=== PATIENT | female | born 1985 | race Caucasian/White ===

== ENCOUNTER → 2022-09-25 09:46 | Outpatient (CLI) | payer BC, SELFPAY ==
[2022-09-25 11:38] LABS: HCG,Quantitative < 2 mIU/ml (0-5.42)
== END ==
PROVIDERS: PCP Nurse Practitioner; Visit Provider Obstetrics & Gynecology
DX: N92.6 Irregular menstruation, unspecified (principal); Z32.00 Encounter for pregnancy test, result unknown
CPT/HCPCS: 36415; 84702